=== PATIENT | male | born 1990 | race Caucasian/White ===

== ENCOUNTER 2017-06-08 17:45 | Emergency (ER) | payer OTHER ==
[2017-06-08 17:57] VITALS: BP 131/82; PULSE 59; RESP 19; TEMP 98.4; O2SAT 98
--- NOTE | 2017-06-08 18:28 | EDPHY ---
H & P Smoking Status: Never smoked Time Seen by Provider: 06/08/17 18:20 HPI/ROS: CHIEF COMPLAINT: Left middle digit crush injury HISTORY OF PRESENT ILLNESS: 27-year-old male right-hand dominant with up-to- date tetanus sustained a crush injury to the left middle digit distal phalanx while he was at work today and a rock crushed his distal phalanx. He sustained a subungual hematoma which was trephinated by colleagues using a heated safety pin. He is complaining of pain to the distal phalanx. No paresthesia. Full sensation. PHYSICAL EXAM (Prior to examination, patient consented to physical exam, hands were washed and my usual and customary physical exam procedures followed) 1) GENERAL: Well-developed, well-nourished, alert and oriented. Appears to be in no acute distress. 2) HEAD: Normocephalic 3) HEENT: sclera anicteric 4) LUNGS: Breathing comfortably. 5) SKIN: no laceration. There is a subungual hematoma of less than 5% with a mid nail trephination hole. 6) MUSCULOSKELETAL: the distal phalanx of the middle digit is tender palpation , soft compartments, flexor and extensor function at the MCP PIP D IP intact with no deficits 7) NEUROLOGIC: Full sensation (Giorgio Soriano) Constitutional: Initial Vital Signs Temperature (C) 36.9 C 06/08/17 17:54 Heart Rate 59 L 06/08/17 17:54 Respiratory Rate 19 06/08/17 17:54 Blood Pressure 131/82 H 06/08/17 17:54 O2 Sat (%) 98 06/08/17 17:54 O2 Delivery Mode Room Air Allergies/Adverse Reactions: No Known Allergies Allergy (Verified 06/08/17 17:54) Home Medications: Medication Instructions Recorded Cephalexin [Keflex] 500 mg PO QID 7 Days 06/08/17 Ibuprofen [Motrin (*)] 800 mg PO Q6 #15 tab 06/08/17 MDM/Departure - MDM Imaging Results: Images reviewed by myself (Giorgio Soriano) Procedures: Procedure: Digital nerve block Indication: Pain relief Indications risks benefits of digital nerve block and medication discussed with patient and consented. My usual and customary technique of digital nerve block consisting of 1% plain lidocaine placed by myself achieving anesthesia distally. Procedure: Splint An aluminum cage finger splint was applied by ER medtronics technician. After application of the splint I returned and re-examined the patient. The splint was adequately immobilizing the joint and distal to the splint the patient's circulation and sensation were intact. Patient shows no signs of compartment syndrome. Was given orthopedic precautions. (Giorgio Soriano) ED Course/Re-evaluation: Serial exam findings perform the patient. He remains with soft compartments. He is neurovascularly intact. Digital nerve block achieved pain relief. I discussed his imaging findings showing a small cortical disruption consistent with a nondisplaced tuft fracture of the affected digit. He did have pre- hospital trephination of subungual hematoma. I have recommended close follow- up with Hand surgery as this may be an open fracture. He is started on oral Keflex. This is worker's Comp related injury and recommend he speak with work comp provider 1st but have provided him hand surgery follow-up information. He has been splinted as well. Usual and customary orthopedic precautions and instructions provided feels comfortable with this discharge plan. (Giorgio Soriano) The patient wasevaluatedand managed by themidlevel provider. My co- signature indicates that Chichi reviewed this chart and I agree with the findings and plan of care asdocumented. I am the secondary supervising physician. (Mimi Nick) - Depart Disposition: Home, Routine, Self-Care Clinical Impression: Subungual hematoma Open fracture of tuft of distal phalanx of left thumb Qualifiers: Encounter type: initial encounter Qualified Code(s): S62.522B - Displaced fracture of distal phalanx of left thumb, initial encounter for open fracture Condition: Good Instructions: Finger Fracture (ED) Additional Instructions: Return to the ER immediately if you experience discoloration, have worsening pain, numbness, tingling, or any other symptoms that concern you. If you received x-rays in the emergency department today, be advised, that ligamentous , tendon, muscular, and other non-bony injury cannot be fully ruled out. Try to keep your affected extremity elevated above the level of your chest, and keep cold packs on the affected area, for the next 48 hours. Stand Alone Forms: Work Comp Follow Up Prescriptions: Cephalexin [Keflex] 500 mg PO QID 7 Days Ibuprofen [Motrin (*)] 800 mg PO Q6 #15 tab Referrals: Joseph Manjarrez MD [Medical Doctor] - 1-2 days without fail
== END 2017-06-08 18:58 | disposition home or self-care (01) ==
PROC: 3E0T3CZ (ICD-10-PCS; principal; 2017-06-08)
DX: S62.663A Nondisplaced fracture of distal phalanx of left middle finger, initial encounter for closed fracture (principal); S60.132A Contusion of left middle finger with damage to nail, initial encounter; W23.1XXA Caught, crushed, jammed, or pinched between stationary objects, initial encounter; Y92.69 Other specified industrial and construction area as the place of occurrence of the external cause; Y99.0 Civilian activity done for income or pay
CPT/HCPCS: L3925